=== PATIENT | female | born 1955 | race Caucasian/White ===

== ENCOUNTER 2018-06-03 16:45 | Emergency (ER) | payer MEDICAID ==
[~2018-06-03] VITALS: Ht 157.5 cm; Wt 58.0 kg
[2018-06-03] MEDS ORDERED: AZIT250T83 PO (18:52)
[2018-06-03] MEDS ORDERED: BENZ-16 PO (19:05)
[2018-06-03 19:08] VITALS: BP 139/66
== END 2018-06-03 19:10 | disposition home or self-care (01) ==
LOC: ER 16:46
DX: J18.9 Pneumonia, unspecified organism (principal); Z59.0 Homelessness; Z88.8 Allergy status to other drugs, medicaments and biological substances; Z79.2 Long term (current) use of antibiotics; Z79.899 Other long term (current) drug therapy
CPT/HCPCS: 71046; 99283

== ENCOUNTER 2018-06-11 17:02 | Emergency (ER) | payer MEDICAID, OTHER ==
[~2018-06-11] VITALS: Ht 157.5 cm; Wt 48.0 kg
[~2018-06-11 17:02] MED LIST: BENZ-16 PO
[2018-06-11 17:29] VITALS: BP 136/84
[2018-06-11] MEDS ORDERED: LORazepam 1 MG tablet PO ONE (18:55)
[2018-06-11] MEDS ORDERED: SERT50TA PO (18:58)
[2018-06-12] MEDS ORDERED: SERT25TA PO (05:51)
[2018-06-12] MEDS ORDERED: ROPI0.252 PO (05:51)
[2018-06-12] MEDS ORDERED: IBUP-1984 PO (05:51)
[2018-06-12] MEDS ORDERED: LISI-600 PO (05:51)
[2018-06-12] MEDS ORDERED: ALBU18HF2 INH (07:24)
[2018-06-12] MEDS ORDERED: LEVO750T21 PO (07:24)
== END 2018-06-11 19:11 | disposition home or self-care (01) ==
LOC: ER 17:02
DX: F41.9 Anxiety disorder, unspecified (principal); Z59.0 Homelessness; Z88.5 Allergy status to narcotic agent; Z88.6 Allergy status to analgesic agent; Z88.8 Allergy status to other drugs, medicaments and biological substances; Z76.0 Encounter for issue of repeat prescription
CPT/HCPCS: 99284

== ENCOUNTER 2018-06-12 14:45 | Emergency (ER) | payer OTHER ==
[~2018-06-12] VITALS: Ht 162.6 cm; Wt 61.4 kg
[~2018-06-12 14:45] MED LIST changes: +ALBU18HF2 INH; +IBUP-1984 PO; +LEVO750T21 PO; +LISI-600 PO; +ROPI0.252 PO; +SERT25TA PO; +SERT50TA PO
[2018-06-12] MEDS ORDERED: LORazepam 1 MG tablet PO ONE (14:50)
[2018-06-12 15:40] VITALS: BP 148/73
== END 2018-06-12 15:32 | disposition home or self-care (01) ==
LOC: ER 14:45
DX: F41.9 Anxiety disorder, unspecified (principal); Z59.0 Homelessness; Z88.8 Allergy status to other drugs, medicaments and biological substances; Z79.899 Other long term (current) drug therapy
CPT/HCPCS: 99284